=== PATIENT | male | born 1995 | race Caucasian/White ===

== ENCOUNTER 2017-07-25 23:34 | Emergency (ER) | payer SELFPAY ==
[~2017-07-25] VITALS: Ht 175.3 cm; Wt 72.5 kg
[2017-07-26 00:11] VITALS: BP 129/73; PULSE 77; RESP 18; TEMP 98.2; O2SAT 97
== END 2017-07-26 00:36 | disposition left against medical advice (07) ==
LOC: NED 23:34
DX: Z53.21 Procedure and treatment not carried out due to patient leaving prior to being seen by health care provider (principal)
CPT/HCPCS: 99281